=== PATIENT | female | born 1965 | race Caucasian/White ===

== ENCOUNTER 2021-03-01 12:52 | Outpatient (CLI) | payer BC | END 2021-03-01 12:53 | disposition home or self-care (01) | LOC: CSHWCC 12:52 | PROVIDERS: ATTEND Nurse Practitioner Family | DX: T81.89XD Other complications of procedures, not elsewhere classified, subsequent encounter (principal); K57.92 Diverticulitis of intestine, part unspecified, without perforation or abscess without bleeding; K94.09 Other complications of colostomy | CPT/HCPCS: 99203; G0463 ==